=== PATIENT | male | born 1945 | race Caucasian/White ===

== ENCOUNTER 2016-07-17 09:45 | Emergency (ER) | payer OTHER ==
[~2016-07-17] VITALS: Ht 180.3 cm; Wt 92.4 kg
[2016-07-17 09:48] VITALS: TEMP 37; Ht 180.3 cm; Wt 92.4 kg
[2016-07-17] MEDS ORDERED: LISI-729 PO (10:02)
[2016-07-17] MEDS ORDERED: HYDR12.56 PO (10:02)
[2016-07-17] MEDS ORDERED: XYLOCAINE 1%/SOD BICARB 20 ML VIAL INFIL ONE (10:30)
--- NOTE | 2016-07-17 10:37 | DIAGNOSTIC IMAGING REPORT ---
RIGHT HAND MIN 3 VIEWS ROUTINE CLINICAL HISTORY: Pain status post trauma. Crush injury. COMPARISON: None. DISCUSSION: No acute fractures or dislocations are visualized. There are mild osteoarthritic changes present. IMPRESSION: Mild osteoarthritic changes. No acute fractures identified. Electronically signed by: Maco Hernandez M.D. 07/17/2016 10:35 AM Dictated Date/Time: 07/17/2016 10:34 AM
--- NOTE | 2016-07-17 11:39 | EMERGENCY ROOM VISIT NOTE ---
ED Visit Note First contact with patient: 09:58 Chief Complaint: RIGHT Thumb Laceration History of Present Illness: This patient is a 70-year-old male who presents to the Emergency Department this morning for evaluation of their RIGHT thumb laceration. Patient sustained the laceration while slamming his thumb and the truck door at work. They report a moderate amount of bleeding initially. They deny any numbness or tingling into the distal extremity. They report no decreased range of motion of the affected digit. They have tried nothing for the pain. Patient rates his current discomfort as a 0/10. Patient's Tetanus status is currently up-to-date. Medications: Reviewed and discussed with the patient. Allergies: No known allergies. PMH: No pertinent past medical history. SHx: Patient is a 70-year-old male who lives at home with family. ROS: All pertinent positive and negative review of systems are appropriately documented in the History of Present Illness. Physical Exam: VITAL SIGNS - Vital signs and nursing notes were reviewed. GENERAL - 70-year-old male appearing his stated age who is in no acute distress. Communicates well with provider and answers questions appropriately. SKIN - There is a 2.5 cm long laceration noted to the palmar surface of the proximal RIGHT Thumb. The edges gape apart with traction. No foreign bodies appreciated. Upon further examination there are no deep structures including vessel, tendon, or bony structures appreciated. There is no active bleeding noted. MUSCULOSKELETAL - Laceration as described above. +5/5 strength appreciated of the affected digit. Full range of motion of the affected digit. NEUROLOGIC - Spinothalamic tract was found to be intact with ability to discriminate sharp versus dull sensation. No sensory defects of the dorsal column were appreciated utilizing light touch for evaluation. VASCULAR - Capillary refill was brisk. IMAGING: RIGHT HAND MIN 3 VIEWS ROUTINE CLINICAL HISTORY: Pain status post trauma. Crush injury. COMPARISON: None. DISCUSSION: No acute fractures or dislocations are visualized. There are mild osteoarthritic changes present. IMPRESSION: Mild osteoarthritic changes. No acute fractures identified. ED Course: Patient was seen and evaluated by myself. X-ray of the affected finger was obtained. Imaging results as above. Imaging results were reviewed with the patient who acknowledges understanding. Laceration repair was performed by the physician commercial real estate assistant student under my direct supervision. Costs and benefits of performing primary wound closure versus no repair were discussed with the patient who verbalizes understanding. Verbal consent was obtained prior to performing the procedure. 2.0 cc of 1% buffered lidocaine was used to anesthetize the laceration to the RIGHT 1st digit. The wound was cleansed and prepped in the typical sterile fashion utilizing normal saline and Betadine. The wound was sterilely draped. Once proper anesthetization was established, the wound was further examined and demonstrated no deep structures. The wound was copiously irrigated with normal saline and Betadine. The wound was closed using 7 simple, 5-0 nylon sutures with the wound edges being well approximated. Patient tolerated the procedure well. No complications were met. The wound was cleansed and dressed with a Bacitracin dressing. A metal splint was applied to the finger for comfort. Patient educated on worrisome symptoms for return visit to the Emergency Department. Patient discharged to home in good condition. Impression: RIGHT Thumb Laceration Discharge Instructions: You have received 7 sutures on your RIGHT Thumb. These sutures are NOT dissolvable and WILL need to be removed by a health care provider in 10-12 days. You can return to the Emergency Department or contact your Primary Care Provider to have the sutures removed. Please wear the splint for comfort until the sutures are removed. Proper wound care is essential for adequate wound healing and infection prevention. You can shower and clean the wound with soap and water. Do not scour over the wound, pat dry with a towel. Do not submerse the wound (i.e. bathe or dish wash) until the sutures have been removed. You can use an antibiotic ointment with a dressing over the wound for the next 3-4 days. After this time you may leave the wound dry and open to the air. If crust develops over the wound you can use a Q-tip to apply a 1:1 peroxide:water solution to clean the wound. Look for signs of infection of the wound including: increased pain, swelling, foul discharge, streaking, or increased temperature. If any of these are noticed you should return to the Emergency Department for further assessment and treatment. As with any laceration you may have received nerve damage to the surrounding tissues. This damage may or may not be permanent. You should keep the area covered with sunscreen for the first 6 months to 1 year when at risk for exposure to help minimize scarring. You can also use scar reducing creams or Vitamin E oil to help minimize scarring. For pain control, you can use the following xbur-dzg-jwdgvph medicines (if >12 yo): - Regular strength (325mg/tab) Tylenol (acetaminophen) 2 tabs every 4-6 hours as needed. Do not exceed 12 tablets in a 24 hour period. Avoid taking more than 4 grams (4000 mg) of Tylenol per day. This includes any other sources of acetaminophen you may take on a regular basis. - Regular strength (200 mg/tab) Advil (ibuprofen) 1-2 tabs every 4-6 hours as needed. Do not exceed a dose of 3200 mg per day. Return to the emergency department if your symptoms worsen despite treatment course outlined above. Current/Historical Medications Scheduled Hydrochlorothiazide (Hctz), 1 TAB PO DAILY Lisinopril (Prinivil), 1 TAB PO DAILY Allergies Coded Allergies: No Known Allergies (Unverified , 07/17/16) Vital Signs Date Time Temp Pulse Resp B/P Pulse Ox O2 Delivery O2 Flow Rate FiO2 07/17/16 11:51 62 17 170/81 94 07/17/16 09:48 37.0 66 18 167/91 94 Room Air Departure Information Impression Primary Impression: Laceration of thumb Dispostion Home / Self-Care Condition GOOD Referrals Kirk Isaac M.D. (PCP) Patient Instructions ED Laceration Hand, My [facility] Additional Instructions You have received 7 sutures on your RIGHT Thumb. These sutures are NOT dissolvable and WILL need to be removed by a health care provider in 10-12 days. You can return to the Emergency Department or contact your Primary Care Provider to have the sutures removed. Please wear the splint for comfort until the sutures are removed. Proper wound care is essential for adequate wound healing and infection prevention. You can shower and clean the wound with soap and water. Do not scour over the wound, pat dry with a towel. Do not submerse the wound (i.e. bathe or dish wash) until the sutures have been removed. You can use an antibiotic ointment with a dressing over the wound for the next 3-4 days. After this time you may leave the wound dry and open to the air. If crust develops over the wound you can use a Q-tip to apply a 1:1 peroxide:water solution to clean the wound. Look for signs of infection of the wound including: increased pain, swelling, foul discharge, streaking, or increased temperature. If any of these are noticed you should return to the Emergency Department for further assessment and treatment. As with any laceration you may have received nerve damage to the surrounding tissues. This damage may or may not be permanent. You should keep the area covered with sunscreen for the first 6 months to 1 year when at risk for exposure to help minimize scarring. You can also use scar reducing creams or Vitamin E oil to help minimize scarring. For pain control, you can use the following qcoq-uki-wmxacfy medicines (if >12 yo): - Regular strength (325mg/tab) Tylenol (acetaminophen) 2 tabs every 4-6 hours as needed. Do not exceed 12 tablets in a 24 hour period. Avoid taking more than 4 grams (4000 mg) of Tylenol per day. This includes any other sources of acetaminophen you may take on a regular basis. - Regular strength (200 mg/tab) Advil (ibuprofen) 1-2 tabs every 4-6 hours as needed. Do not exceed a dose of 3200 mg per day. Return to the emergency department if your symptoms worsen despite treatment course outlined above. Problem Qualifiers Primary Impression: Laceration of thumb Encounter type: initial encounter Laterality: right Qualified Codes: S61.011A - Laceration without foreign body of right thumb without damage to nail , initial encounter
[2016-07-17 11:51] VITALS: BP 170/81; PULSE 62; O2SAT 94
== END 2016-07-17 11:53 | disposition home or self-care (01) ==
LOC: C.EDB 09:47
DX: S61.011A Laceration without foreign body of right thumb without damage to nail, initial encounter (principal); V46.4XXA Person boarding or alighting a car injured in collision with other nonmotor vehicle, initial encounter; Y92.89 Other specified places as the place of occurrence of the external cause; Y99.0 Civilian activity done for income or pay; Z79.899 Other long term (current) drug therapy

== ENCOUNTER 2016-07-25 13:57 | Emergency (ER) | payer OTHER ==
[~2016-07-25] VITALS: Ht 180.3 cm; Wt 92.0 kg
[~2016-07-25 13:57] MED LIST: HYDR12.56 PO; LISI-729 PO
[2016-07-25 14:04] VITALS: BP 151/69; PULSE 78; TEMP 36.6; O2SAT 96; Ht 180.3 cm; Wt 92.0 kg
--- NOTE | 2016-07-25 20:31 | EMERGENCY ROOM VISIT NOTE ---
ED Visit Note First contact with patient: 14:09 CHIEF COMPLAINT: Suture removal This patient returns to the ED today for removal of sutures that were placed 8 days ago. There has been no swelling, redness, or drainage from the wound. The patient feels like the laceration is healing well. REVIEW OF SYSTEMS: Head: No headache, injury or neck pain. Skin: No rash, new lesions, or masses. General: No fever or chills, fatigue, loss of appetite , or significant recent weight gain or loss. PMH: The patient is healthy; there is no significant medical or surgical history. SOCIAL HISTORY: Patient lives at home. PHYSICAL EXAM: Vital Signs: Reviewed Nurse's notes. There is a sutured wound on the palmar aspect of the right thumb with no signs of infection. There is no erythema, swelling, or tenderness. EMERGENCY DEPARTMENT COURSE: The sutures were removed without any difficulty and there was no separation of the wound edges. Wound was reinforced with Steri-Strips. Current/Historical Medications Scheduled Hydrochlorothiazide (Hctz), 1 TAB PO DAILY Lisinopril (Prinivil), 1 TAB PO DAILY Allergies Coded Allergies: No Known Allergies (Unverified , 07/17/16) Vital Signs Date Time Temp Pulse Resp B/P Pulse Ox O2 Delivery O2 Flow Rate FiO2 07/25/16 14:04 36.6 78 16 151/69 96 Room Air Departure Information Impression Primary Impression: Encounter for removal of sutures Dispostion Home / Self-Care Condition GOOD Referrals Kirk Isaac M.D. (PCP) Forms HOME CARE DOCUMENTATION FORM, IMPORTANT VISIT INFORMATION Patient Instructions [facility]
== END 2016-07-25 14:20 | disposition home or self-care (01) ==
LOC: C.EDB 13:58 → C.EDD 14:20
DX: Z48.02 Encounter for removal of sutures (principal)

== ENCOUNTER → 2017-03-02 | Outpatient (CLI) | payer OTHER, BC ==
--- NOTE | 2017-03-02 13:04 | DIAGNOSTIC IMAGING REPORT ---
ULTRASOUND LEFT VENOUS DOPP LOWER EXT UNILAT CLINICAL HISTORY: LEFT LOWER EXT PAIN AND SWELLING COMPARISON STUDY: No previous studies for comparison. FINDINGS: Real-time and color flow Doppler imaging were performed. Flow was seen within the femoral, popliteal and calf veins with no intraluminal thrombus demonstrated. The saphenous vein is patent. There is a complex popliteal cyst, with extension to the calf measuring 14 x 5 x 2 cm. IMPRESSION: 1. No evidence of left lower extremity DVT. 2. Complex left popliteal cyst which appears to have dissected into the calf. Electronically signed by: Maco Hernandez M.D. 03/02/2017 1:03 PM Dictated Date/Time: 03/02/2017 1:02 PM
== END | disposition home or self-care (01) ==
LOC: C.ULTRBC 12:10
PROVIDERS: ATTEND Family Medicine
DX: M79.662 Pain in left lower leg (principal); M71.22 Synovial cyst of popliteal space [Baker], left knee